=== PATIENT | female | born 1975 | race Hispanic/Latino ===

== ENCOUNTER 2022-04-16 16:08 | Emergency (ER) | payer SELFPAY ==
[~2022-04-16] VITALS: Ht 157.5 cm; Wt 61.7 kg
[2022-04-16] MEDS ORDERED: IBUPROFEN 600 MG TABLET ONE (16:54)
[2022-04-16] MEDS ORDERED: IBUPROFEN 600 MG TABLET PO ONE (17:00)
[2022-04-16 17:30] VITALS: BP 128/82
== END 2022-04-16 18:18 | disposition home or self-care (01) ==
LOC: EDH 16:08
DX: S80.11XA Contusion of right lower leg, initial encounter (principal); M54.2 Cervicalgia; X58.XXXA Exposure to other specified factors, initial encounter; Y93.89 Activity, other specified; Y92.89 Other specified places as the place of occurrence of the external cause; Y99.8 Other external cause status
CPT/HCPCS: 70450; 71045; 72125; 93005